=== PATIENT | male | born 1970 | race Caucasian/White ===

== ENCOUNTER 2018-08-11 14:02 | Emergency (ER) | payer BC, OTHER ==
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
[2018-08-11 14:45] LABS: Amphetamine Screen,Urine Not Detected (NotDetected); Barbiturate Screen,Urine Not Detected (NotDetected); Benzodiazepines Screen,Urine Not Detected (NotDetected); Cocaine Screen,Urine Not Detected (NotDetected); Methadone Screen, Urine Not Detected (NotDetected); Opiate Screen,Urine Not Detected (NotDetected); Oxycodone Screen, Urine Not Detected (NotDetected); Phencyclidine Screen,Urine Not Detected (NotDetected); Tricyclic Antidepressant,Urine Not Detected (NotDetected); Urn Cannabinoid Scrn Detected (NotDetected)
[2018-08-11 14:55] LABS: Basophils % (A) 0 %; Eosinophils # (A) 0.2 k/uL (0-0.7); Eosinophils % (A) 2 %; HCT 51.7 % (39.0-53.0); HGB 16.7 gm/dL (13.0-17.5); Lymphocytes # (A) 4.4 k/uL (1.0-4.8); Lymphocytes % (A) 40 %; MCH 32.5 pg (25.0-35.0); MCHC 32.3 g/dL (31.0-37.0); MCV 100.6 fL (80.0-100.0); Mean Platelet Volume 6.3; Monocytes # (A) 0.5 k/uL (0-1.0); Monocytes % (A) 5 %; Neutrophils # (A) 5.5 k/uL (1.3-7.7); Neutrophils % (A) 50 %; Platelet Count 354 k/uL (150-450); RBC 5.14 m/uL (4.30-5.90); RDW 12.8 % (11.5-15.5)
[2018-08-11 15:03] LABS: Anion Gap 8 mmol/L; Blood Urea Nitrogen 9 mg/dL (9-20); Calcium 9.8 mg/dL (8.4-10.2); Carbon Dioxide 23 mmol/L (22-30); Chloride 116 mmol/L (98-107); Glucose 107 mg/dL (74-99); Potassium 4.9 mmol/L (3.5-5.1); Sodium 147 mmol/L (137-145)
[2018-08-11 15:11] LABS: Alcohol 251 mg/dL
[2018-08-11] MEDS ORDERED: LORazepam 2 MG/ML INJ IM STA (15:31)
[2018-08-11 21:39] VITALS: BP 121/71; PULSE 73
[2018-08-12] MEDS ORDERED: NICOTINE 21MG/24HR PATCH TRANSDERM STA (00:12)
[2018-08-12 06:08] VITALS: RESP 16; TEMP 97.6
--- NOTE | 2018-08-14 00:31 | CDI ---
Dear Tyron Bashir DO: Please do clinical Impression and Disposition. Thank you, Destinee Robbins, [employer]. If you have any questions, please contact [employer] at [phone]. [email or web address]
== END 2018-08-12 05:52 | disposition psychiatric hospital, planned readmission (93) ==
LOC: EC 14:02
DX: R45.851 Suicidal ideations (principal); D72.828 Other elevated white blood cell count; E86.0 Dehydration; R82.5 Elevated urine levels of drugs, medicaments and biological substances; F17.200 Nicotine dependence, unspecified, uncomplicated; Y90.8 Blood alcohol level of 240 mg/100 ml or more
CPT/HCPCS: 82075; 36415; 80048; 85025; 80306; 80320; 99285; 96372; S4990; J2060